=== PATIENT | female | born 1945 | race Caucasian/White ===

== ENCOUNTER 2021-03-08 23:52 | Emergency (ER) | payer MEDICARE ==
[~2021-03-08] VITALS: Ht 170.2 cm; Wt 100.0 kg
[~2021-03-08 23:52] MED LIST: KEFLEX500 MG PO
--- NOTE | 2021-03-09 02:03 | NUR ---
I was in house when [place] was given at approx 2245. At approx 1207 PT's arrived. I stood with him and checked in with him. PT passed shortly after and right after her left the Trauma room. I went with him to the door and he went into his car until his son and brother arrived. He asked me to call [facility]. I talked with his son and offered my condolences. Once PT was released I called at 0113 and they arrived at approx 0152. I let the family know they could go if they wanted and that the home would call them. They left the hospital around 0120.
== END 2021-03-09 01:52 ==
LOC: ED 23:52 → EDBD 23:53 → ED 23:53
DX: I46.9 Cardiac arrest, cause unspecified (principal)
CPT/HCPCS: 71045; 80053; 82803; 83735; 83880; 84484; 85007; 85025; 85379; 85610; 85730; 92950; 94002; 99285-25; J0171